=== PATIENT | female | born 1985 | race African-American/Black ===

== ENCOUNTER 2018-08-14 09:03 | Outpatient (CLI) | payer OTHER ==
[2018-08-14] VITALS (14 sets, daily range): BP systolic 88–124; BP diastolic 62–82; PULSE 64–104; TEMP 97.4
[~2018-08-14] VITALS: Ht 160 cm; Wt 69.5 kg
[2018-08-14 09:37] LABS: HEMOGLOBIN 12.9 g/dl (12.5-16.0); MEAN CELL VOLUME 88 fl (80.0-100.0); MEAN CORPUSCULAR HEMOGLOBIN 29 pg (27.0-31.0); MEAN CORPUSCULAR HGB CONC 33 g/dl (33.0-37.0); MEAN PLATELET VOLUME 8.4 fl (7.4-10.4); PLATELET COUNT 720 K/mm3 (130-400); RED BLOOD COUNT 4.41 M/mm3 (4.10-5.30); REDCELL DISTRIBUTION WIDTH-CV 15.3 % (11.5-14.5)
[2018-08-14 09:42] LABS: PROTHROMBIN TIME 11.8 SECONDS (9.7-12.8)
[2018-08-14] MEDS ORDERED: IRON TABLETS325 MG PO (09:43)
[2018-08-14] MEDS ORDERED: VITAMIN C500 MG PO (09:44)
[2018-08-14] MEDS ORDERED: MULTI VITAMINS1 TAB PO (09:44)
[2018-08-14] MEDS ORDERED: ASPIRIN 81M81 MG/TA2 PO (09:44)
[2018-08-14] MEDS ORDERED: NATURAL MAGNES200 MG PO (09:45)
[2018-08-14] MEDS ORDERED: DESYREL DIVIDO300 MG PO (09:46)
[2018-08-14 09:47] LABS: CREATININE, serum 0.86 (0.52-1.25)
--- NOTE | 2018-08-14 10:20 | NUR ---
1019 - TIMEOUT WITH DR. SMITH & STAFF AT BEDSIDE. PATIENT VERIFICATION REPEATED BACK. 1020 - CETACAINE SPRAY TO THROAT BY VASCULAR SHOPPER. 1024 - MAZIN PROBE INSERTED 1029 - BUBBLE STUDY BY RN 1033 - MAZIN PROBE REMOVAL TIME
--- NOTE | 2018-08-14 11:04 | NUR ---
REPORT TO SHAGGY SCHUSTER
--- NOTE | 2018-08-14 11:15 | NUR ---
Sitting up in bed. Denies pain and needs at this time.
--- NOTE | 2018-08-14 12:15 | NUR ---
INT discontinued intact. Discharge instructions given. Transferred to private car by petar
== END 2018-08-14 12:20 | disposition home or self-care (01) ==
LOC: COL.RAD 09:03
PROVIDERS: Internal Medicine Cardiovascular Disease
DX: I63.9 Cerebral infarction, unspecified (principal)
CPT/HCPCS: J2704; J3010